=== PATIENT | male | born 1990 | race American Indian/Alaskan Native ===

== ENCOUNTER 2018-06-25 03:08 | Emergency (ER) | payer SELFPAY ==
[2018-06-25] MEDS ORDERED: NACL 0.9% 1000 ML 1,000 ML IV ONE (03:23)
[2018-06-25] MEDS ORDERED: TORADOL IV ONE (04:11)
[2018-06-25] MEDS ORDERED: SUBLIMAZE IV ONE (04:12)
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
[2018-06-25 04:13] LABS: Basophils % (Auto) 0.5 % (0.0-1.8); Eosinophils % (Auto) 0.2 % (0.0-4.3); Hematocrit 35.7 % (35.5-45.6); Hemoglobin 12.7 gm/dl (11.8-15.2); Lymphocytes # (Auto) 2.5 K/mm3 (1.2-5.4); Lymphocytes % (Auto) 38.6 % (13.4-35.0); Mean Corpuscular HGB Conc 36 % (32-34); Mean Corpuscular Hemoglobin 32 pg (28-32); Mean Corpuscular Volume 90 fl (84-94); Monocytes # (Auto) 0.7 K/mm3 (0.0-0.8); Platelet Count 259 K/mm3 (140-440); Red Blood Count 3.97 M/mm3 (3.65-5.03); Red Cell Distribution Width 16.5 % (13.2-15.2)
[2018-06-25 04:33] LABS: Alanine Aminotransferase 11 units/L (7-56); BUN/Creatinine Ratio 19; Blood Urea Nitrogen 15 mg/dL (9-20); Calcium 8.4 mg/dL (8.4-10.2); Hemolysis Index 9
--- NOTE | 2018-06-25 05:28 | Cat Scan Report ---
FINAL REPORT PROCEDURE: CT ABDOMEN PELVIS W CON TECHNIQUE: Computerized axial tomography of the abdomen and pelvis was performed after the IV injection of iodinated nonionic contrast. HISTORY: abd pain hiv + COMPARISON: No prior studies are available for comparison. FINDINGS: Visualized lower thorax: No significant abnormality. Liver: Normal size and attenuation. Spleen: Normal size and attenuation. Gallbladder and biliary system: Normal. Pancreas: Normal. Adrenals: Normal. Kidneys: Normal. GI tract: There is moderate stool in the colon. There is no obstruction, colitis or diverticulitis. The stomach and small bowel are unremarkable. The appendix is normal.. Lymph nodes and mesentery: Normal. Vasculature: Normal. Bladder: Normal. Reproductive organs: Normal. Peritoneum: There is no ascites or free air, abscess or adenopathy.. Musculoskeletal structures: No significant abnormality. Other: There are numerous tiny densities in the stomach and small bowel. This represents dense ingested material, possibly medication. Foreign bodies not excluded.. IMPRESSION: There is moderate stool in the colon. There is no obstruction, colitis or diverticulitis. The stomach and small bowel are unremarkable. The appendix is normal.. There are numerous tiny densities in the stomach and small bowel. This represents dense ingested material, possibly medication. Foreign bodies not excluded.. There is no ascites or free air, abscess or adenopathy.. There are numerous tiny densities in the stomach and small bowel. This represents dense ingested material, possibly medication. Foreign bodies not excluded..
[2018-06-25 05:43] VITALS: BP 98/54
== END 2018-06-25 06:07 | disposition home or self-care (01) ==
LOC: ED 03:08
DX: R10.13 Epigastric pain (principal); R10.33 Periumbilical pain; F17.200 Nicotine dependence, unspecified, uncomplicated
CPT/HCPCS: 36415; 74177; 80053; 83690; 85025; 96374; 96375; 99284; J1885; J3010; J7030; Q9967